=== PATIENT | female | born 1955 | race Caucasian/White ===

== ENCOUNTER 2021-01-18 20:01 | Inpatient (IN) ==
[2021-01-18] MEDS: NORMAL SALINE 1,000 ML IV SCH ×2 (20:21→21:51)
--- NOTE | 2021-01-18 20:30 | ERNOTE ---
Dyspnea - Date Date of Service: 01/18/21 - General Presenting Symptoms: shortness of breath Time Seen by Provider: 01/18/21 20:02 Source: EMS - Immun/Allergies/Home Medications Immunizations: IMMUNIZATION HX Immunizations Up to Date Yes History of Influenza Vaccine Yes Hx Pneumococcal Vaccination Yes Allergies/Adverse Reactions: Allergies cephalexin Allergy (Unknown, Verified 12/29/20 10:42) clarithromycin Allergy (Unknown, Verified 12/29/20 10:42) esomeprazole Allergy (Unknown, Verified 12/29/20 10:42) levofloxacin [From Levaquin] Allergy (Unknown, Verified 12/29/20 10:42) meperidine Allergy (Unknown, Verified 12/29/20 10:42) morphine Allergy (Unknown, Verified 12/29/20 10:42) omeprazole Allergy (Unknown, Verified 12/29/20 10:42) Penicillins Allergy (Unknown, Verified 12/29/20 10:42) Sulfa (Sulfonamide Antibiotics) Allergy (Unknown, Verified 12/29/20 10:42) sulfamethoxazole [From Bactrim] Allergy (Unknown, Verified 12/29/20 10:42) trimethoprim [From Bactrim] Allergy (Unknown, Verified 12/29/20 10:42) Home Medications: HOME MEDICATIONS Acyclovir [Zovirax] 800 mg PEG BID 10/11/20 [Last Taken Unknown] Albuterol Sulfate [Albuterol Sulfate 2.5 MG/0.5ML] 1 vial IH BID PRN 10/11/20 [Last Taken Unknown] Apixaban [Eliquis] 5 mg PEG BID 10/11/20 [Last Taken Unknown] Ascorbate Calcium [Vitamin C] 500 mg PEG DAILY 10/11/20 [Last Taken Unknown] Aspirin [Aspirin Chewable] 81 mg PEG DAILY 10/11/20 [Last Taken Unknown] Atorvastatin Calcium 80 mg PEG HS 10/11/20 [Last Taken Unknown] Banana Flakes/Tos [Banatrol Plus] 1 ea PEG TID 10/11/20 [Last Taken Unknown] Cholecalciferol (Vitamin D3) [Vitamin D3] 3 tab PEG DAILY 10/11/20 [Last Taken Unknown] Doxazosin Mesylate [Cardura] 1 mg PEG DAILY 10/11/20 [Last Taken Unknown] Furosemide [Lasix] 40 mg PEG BID 10/11/20 [Last Taken Unknown] Gabapentin 300 mg PEG DAILY 10/11/20 [Last Taken Unknown] Insulin Glargine,Hum.rec.anlog [Lantus] 30 unit SQ HS 10/11/20 [Last Taken Unknown] Lactose-Reduced Food/Fiber [Jevity 1.5 Rickey Liquid] 55 ml PEG .CONTINOUS 10/11/20 [Last Taken Unknown] Lansoprazole [Prevacid] 30 mg PEG DAILY 10/11/20 [Last Taken Unknown] Levothyroxine Sodium [Levoxyl] 150 mcg PEG DAILY 10/11/20 [Last Taken Unknown] Modafinil 200 mg PEG DAILY 10/11/20 [Last Taken Unknown] Potassium Chloride 2 packet PEG DAILY 10/11/20 [Last Taken Unknown] Venlafaxine HCl 75 mg PEG BID 10/11/20 [Last Taken Unknown] Azithromycin 500 mg PEG DAILY 01/18/21 [Last Taken Unknown] Banana Flakes/Tos [Banatrol Plus] 1 ea PEG TID 01/18/21 [Last Taken Unknown] Chlorhexidine Gluconate [Peridex 0.12%] 15 ml .ROUTE BID 01/18/21 [Last Taken Unknown] Insulin Lispro [Humalog] 100 unit SQ DAILY 01/18/21 [Last Taken Unknown] Insulin NPH Human Recom [Novolin N] 1 units SC DAILY 01/18/21 [Last Taken Unknown] Linezolid 600 mg PEG BID 01/18/21 [Last Taken Unknown] - History of Present Illness Narrative: 66-year-old female who is vent dependent, presents by ambulance with difficulty breathing and increased sputum production. No fever. No chest pain. No abdominal pain. "Does not feel well". Generalized weakness is a complaint. No vomiting or diarrhea. No headache. Review of Systems - Review of Systems Constitutional: Present: weakness, malaise. Absent: fever, chills Respiratory: Present: shortness of breath, cough, wheezing Cardiology: Absent: chest pain, palpitations Gastrointestinal/Abdominal: Absent: vomiting, diarrhea Medical History (Last Reviewed 01/18/21 @ 20:51 by Vilma Kovacs DO) Dependence on supplemental oxygen (Acute) Personal history of transient ischemic attack (TIA), and cerebral infarction without residual deficits (Acute) Body mass index [BMI] 50.0-59.9, adult (Acute) Encounter for attention to gastrostomy (Acute) Encounter for attention to tracheostomy (Acute) Solitary pulmonary nodule (Acute) Chronic obstructive pulmonary disease, unspecified (Acute) Unspecified diastolic (congestive) heart failure (Acute) Paroxysmal atrial fibrillation (Acute) Essential (primary) hypertension (Acute) Metabolic encephalopathy (Acute) Obstructive sleep apnea (Acute) Major depressive disorder, single episode, mild (Acute) Hypothyroidism, unspecified (Acute) Sarcoidosis of skin (Acute) Other folate deficiency anemias (Acute) Other vitamin B12 deficiency anemias (Acute) Herpesviral encephalitis (Acute) Dependence on respirator [ventilator] status (Acute) Acute and chronic respiratory failure with hypoxia (Acute) Surgical History: Surgical History (Last Reviewed 01/18/21 @ 20:51 by Vilma Kovacs DO) Surgical history unknown Family History: Family History (Last Reviewed 01/18/21 @ 20:51 by Vilma Kovacs DO) Family history unknown Social History: (Last Reviewed 01/18/21 @ 20:51 by Vilma Kovacs DO) Social History: fdc: Yes fdc comment: [facility] Marital status: number of children: 2 current occupational status: retired Tobacco: Smoking Status: Unknown if ever smoked Substance Use: substance use type: unknown Physical Exam - Physical Exam General Appearance: Present: alert Neck: Present: other - Tracheostomy in place Respiratory: Present: rhonchi - Scattered rhonchi, worse on the left Cardiovascular/Chest: Present: regular rate, rhythm Gastrointestinal/Abdominal: Present: nondistended, soft Neurological Exam: Present: alert Progress - Results and Orders Patient's Lab Results:: I have reviewed the patient's lab results. - Vital Signs Patient's Vital Signs:: I have reviewed the patient's vital signs. Vital Signs: Vital Signs 01/18/21 20:04 Temperature 37.2 C Pulse Rate 69 Respiratory Rate 16 Blood Pressure 112/39 O2 Sat by Pulse Oximetry 100 - EKG EKG #1 EKG: NSR EKG read: Interp. by me EKG Comments: I reviewed the EKG performed 2107 that showed a sinus rhythm with Q waves in the anterior leads, unchanged compared to previous EKG from 10/10/2020 - X-Ray X-Ray #1 X-Ray: chest Interpretation: Interp. by me X-ray Comments: 1 view chest x-ray showed an infiltrate at the left base - Progress/Reassessment Chief Complaint: Dyspnea Progress:: Re-examined Progress Note-Subjective: 01/18/21 22:05 After reviewing all of her results, I spoke with the hospitalist, Dr. Root. We discussed her long list of allergies that include cephalexin, Biaxin, Levaquin, penicillin and sulfa. When she arrived after blood cultures were drawn, I did give her 500 mg of Zithromax IV piggyback because she has tolerated this well in the past. Dr. Root and I discovered better coverage considering her pneumonia and UTI from her chronic indwelling Aguilera catheter, Dr. Root asked that I order cefepime. I did order 1000 mg of cefepime IV piggyback. I did bridging orders to admit the patient to Dr. Root service. Departure Clinical Impression: Pneumonia Qualifiers: Pneumonia type: due to unspecified organism Laterality: left Lung location: lower lobe of lung Qualified Code(s): J18.9 - Pneumonia, unspecified organism Chronic obstructive pulmonary disease, unspecified Qualifiers: COPD type: COPD with acute exacerbation Qualified Code(s): J44.1 - Chronic obstructive pulmonary disease with (acute) exacerbation - Departure Disposition: Still a patient Condition: Fair Referrals: Camryn Chavira DO [Primary Care Provider] -
[2021-01-18 21:01] LABS: Hematocrit 34.8 % (37.0-47.0); Hemoglobin 10.8 gm/dL (12.5-16.0); Mean Cell Volume 85.9 fl (78-100); Mean Corpuscular Hemoglobin 26.7 pg (27-31); Mean Platelet Volume 10.2 fl (8-12.5); Neutrophil # 6.1 K/mm3 (1.3-6.0); Platelet Count 282 K/mm3 (150-450); Red Blood Count 4.05 M/mm3 (4.2-5.4); White Blood Count 8.7 K/mm3 (4.0-10.5)
[2021-01-18] MEDS ORDERED: AZITHROMYCIN 500 MG in NORMAL SALINE 250 ML IV ONE (21:15)
[2021-01-18 21:17] LABS: Urine Bilirubin Negative (NEGATIVE); Urine Blood Negative /ul (NEGATIVE); Urine Ketone Negative (NEGATIVE); Urine Protein Negative (NEGATIVE); Urine Urobilinogen Normal (NORMAL); Urine pH 7.5 pH (5.0-7.0)
[2021-01-18 21:22] LABS: Albumin * 2.6 gm/dl (3.4-5.0); Anion Gap 9.9 mmol/L (6.8-13.8); BUN/Creatinine Ratio 19.4 (9.0-21.6); Bilirubin, Total 0.5 mg/dL (0.0-1.1); Ca. Corrected For Albumin 9.2 mg/dL (8.4-10.2); Calcium * 8.4 mg/dL (7.9-10.9); Carbon Dioxide 31.7 mmol/L (24-32.6); Potassium 3.6 mmol/L (3.4-4.6); Total Protein 7.5 gm/dL (6.2-8.2); Troponin I 0.03 ng/mL (0.00-0.10)
[2021-01-18 21:36] LABS: Urine Appearance Slightly Cloudy (CLEAR); Urine Bacteria 4+; Urine Color Yellow; Urine Nitrite Positive (NEGATIVE); Urine RBC TRACE /hpf (0-5); Urine WBC 25-50 /hpf (0-5)
[2021-01-18] MEDS ORDERED: CEFEPIME HCL 1 GM/100 ML BAG IV ONE (21:52)
[2021-01-18] MEDS ORDERED: MORPHINE SULFATE 4 MG/ML SYRG IV ONE (22:31)
[2021-01-18] MEDS ORDERED: ONDANSETRON HCL/PF 2 MG/ML VIAL IV ONE (22:32)
[2021-01-19] MEDS: CEFEPIME HCL 2 GM in DEXTROSE 5 % IN WATER 100 ML IV SCH ×6 (04:26→22:04)
[2021-01-19] MEDS: NORMAL SALINE 1,000 ML IV SCH ×2 (04:53→04:54)
[2021-01-19] MEDS ORDERED: VANCOMYCIN HCL 2 GM in DEXTROSE 5 % IN WATER 500 ML IV ONE ×2 (05:19)
--- NOTE | 2021-01-19 06:25 | HP ---
Chief Complaint - Chief Complaint Date of Service: 01/19/21 Time of Service: 07:00 Chief Complaint: hypoxia History of Present Illness: The patient is 66-year-old female, [facility] resident, with a history of diabetes, trach dependent with indwelling Aguilera catheter and PEG tube placement, who has not been feeling well for a few days. Her oxygen had to be increased to 5 L. Workup the usp was consistent of chest x-ray which showed left lower lobe pneumonia. She was brought to the hospital for further evaluation. Her vital signs remained stable. Lactic acid was 1.2. She was also noted to have a urinary tract infection, but was a Aguilera specimen. The Aguilera catheter was changed on 01/17/21. She was given azithromycin via PEG to and she was also given a dose of morphine for what is presumed to be back pain. She is being admitted for further evaluation. Medical History (Last Reviewed 01/19/21 @ 00:45 by Heather Younger RN) Dependence on supplemental oxygen (Acute) Personal history of transient ischemic attack (TIA), and cerebral infarction without residual deficits (Acute) Body mass index [BMI] 50.0-59.9, adult (Acute) Encounter for attention to gastrostomy (Acute) Encounter for attention to tracheostomy (Acute) Solitary pulmonary nodule (Acute) Chronic obstructive pulmonary disease, unspecified (Acute) Unspecified diastolic (congestive) heart failure (Acute) Paroxysmal atrial fibrillation (Acute) Essential (primary) hypertension (Acute) Metabolic encephalopathy (Acute) Obstructive sleep apnea (Acute) Major depressive disorder, single episode, mild (Acute) Hypothyroidism, unspecified (Acute) Sarcoidosis of skin (Acute) Other folate deficiency anemias (Acute) Other vitamin B12 deficiency anemias (Acute) Herpesviral encephalitis (Acute) Dependence on respirator [ventilator] status (Acute) Acute and chronic respiratory failure with hypoxia (Acute) Surgical History: Surgical History (Last Reviewed 01/19/21 @ 00:45 by Heather Younger RN) Surgical history unknown Family History: Family History (Last Reviewed 01/19/21 @ 00:45 by Heather Younger RN) Family history unknown Social History: (Last Reviewed 01/19/21 @ 00:45 by Heather Younger RN) Social History: usp: Yes usp comment: [facility] Marital status: number of children: 2 current occupational status: retired Tobacco: Smoking Status: Unknown if ever smoked Substance Use: substance use type: unknown Review Of Systems (GEN) - Review of Systems Generalized/Overall Review: Present: No Symptoms Reported - The patient denies any fevers, chills, visual changes, nausea, vomiting, abdominal pain, diarrhea, or chest pain. she is trach dependent and does not have a speaking valve in. She was nodding yes and no to questions. Immunizations: IMMUNIZATION HX Immunizations Up to Date Yes History of Influenza Vaccine Yes Hx Pneumococcal Vaccination Yes Allergies/Adverse Reactions: Allergies Allergy/AdvReac Type Severity Reaction Status Date / Time cephalexin Allergy Unknown Verified 12/29/20 10:42 clarithromycin Allergy Unknown Verified 12/29/20 10:42 esomeprazole Allergy Unknown Verified 12/29/20 10:42 levofloxacin [From Levaquin] Allergy Unknown Verified 12/29/20 10:42 meperidine Allergy Unknown Verified 12/29/20 10:42 morphine Allergy Unknown Verified 12/29/20 10:42 omeprazole Allergy Unknown Verified 12/29/20 10:42 Penicillins Allergy Unknown Verified 12/29/20 10:42 Sulfa (Sulfonamide Allergy Unknown Verified 12/29/20 10:42 Antibiotics) sulfamethoxazole Allergy Unknown Verified 12/29/20 10:42 [From Bactrim] trimethoprim [From Bactrim] Allergy Unknown Verified 12/29/20 10:42 Home Medications: HOME MEDICATIONS Acyclovir [Zovirax] 800 mg PEG BID 10/11/20 [Last Taken Unknown] Albuterol Sulfate [Albuterol Sulfate 2.5 MG/0.5ML] 1 vial IH BID PRN 10/11/20 [Last Taken Unknown] Apixaban [Eliquis] 5 mg PEG BID 10/11/20 [Last Taken Unknown] Ascorbate Calcium [Vitamin C] 500 mg PEG DAILY 10/11/20 [Last Taken Unknown] Aspirin [Aspirin Chewable] 81 mg PEG DAILY 10/11/20 [Last Taken Unknown] Atorvastatin Calcium 80 mg PEG HS 10/11/20 [Last Taken Unknown] Banana Flakes/Tos [Banatrol Plus] 1 ea PEG TID 10/11/20 [Last Taken Unknown] Cholecalciferol (Vitamin D3) [Vitamin D3] 3 tab PEG DAILY 10/11/20 [Last Taken Unknown] Doxazosin Mesylate [Cardura] 1 mg PEG DAILY 10/11/20 [Last Taken Unknown] Furosemide [Lasix] 40 mg PEG BID 10/11/20 [Last Taken Unknown] Gabapentin 300 mg PEG HS 10/11/20 [Last Taken Unknown] Insulin Glargine,Hum.rec.anlog [Lantus] 30 unit SQ HS 10/11/20 [Last Taken Unknown] Lactose-Reduced Food/Fiber [Jevity 1.5 Rickey Liquid] 55 ml PEG .CONTINOUS 10/11/20 [Last Taken Unknown] Lansoprazole [Prevacid] 30 mg PEG DAILY 10/11/20 [Last Taken Unknown] Levothyroxine Sodium [Levoxyl] 150 mcg PEG DAILY 10/11/20 [Last Taken Unknown] Modafinil 200 mg PEG DAILY 10/11/20 [Last Taken Unknown] Potassium Chloride 22.5 ml PEG DAILY 10/11/20 [Last Taken Unknown] Venlafaxine HCl 75 mg PEG BID 10/11/20 [Last Taken Unknown] Acetylcysteine [Mucomyst 20%] 4 ml IH BID 01/18/21 [Last Taken Unknown] Azithromycin 500 mg PEG DAILY 01/18/21 [Last Taken Unknown] Banana Flakes/Tos [Banatrol Plus] 1 ea PEG TID 01/18/21 [Last Taken Unknown] Chlorhexidine Gluconate [Peridex 0.12%] 15 ml .ROUTE BID 01/18/21 [Last Taken Unknown] Ciprofloxacn Bessie 0.3% OP 01/18/21 [Last Taken Unknown] Insulin Lispro [Humalog] 100 unit SQ Q6H 01/18/21 [Last Taken Unknown] Insulin NPH Human Recom [Novolin N] 1 units SC DAILY 01/18/21 [Last Taken Unknown] Linezolid 600 mg PEG BID 01/18/21 [Last Taken Unknown] Acetaminophen 350 mg PEG Q6H PRN 01/19/21 [Last Taken Unknown] Bisacodyl 10 mg RC DAILY PRN 01/19/21 [Last Taken Unknown] Dimethicon/Petrolat/A,C,E/Aloe [Gold Mckenzie Ult Diabetic Cream] TP TID 01/19/21 [Last Taken Unknown] Furosemide 20 mg PEG BID 01/19/21 [Last Taken Unknown] Loperamide HCl [Anti-Diarrheal] 2 mg PEG Q6H PRN 01/19/21 [Last Taken Unknown] Nystatin 1 ea MC TID 01/19/21 [Last Taken Unknown] Nystatin 1,000,000 unit MC BID 01/19/21 [Last Taken Unknown] Nystatin 100,000 unit PO TID 01/19/21 [Last Taken Unknown] Ondansetron HCl [Zofran] 4 mg PEG Q6H PRN 01/19/21 [Last Taken Unknown] Polyethylene Glycol 3350 [Miralax] 17 gm PEG DAILY PRN 01/19/21 [Last Taken Unknown] Prednisolone Acetate/Pf [Prednisolone Acet 1% Eye Drop] 1 drp OP QID 01/19/21 [Last Taken Unknown] Sennosides [Senna] 8.6 mg PEG Q12H PRN 01/19/21 [Last Taken Unknown] Exam - Exam Vital Signs: Vital Signs - Last Taken Temp 36.9 C 01/19/21 02:20 Pulse 61 01/19/21 02:20 Resp 18 01/19/21 02:20 BP 132/65 01/19/21 02:20 Pulse Ox 98 01/19/21 02:20 Comprehensive Narrative: 01/19/21 06:17 General : Alert and oriented 3, trach in place, no erythema or secretions around it HEENT : Extraocular movements intact, pupils equal, and round Neck: supple no JVD Chest: rhonchi on left side. Heart : Regular rate and rhythm. S1 and S2 heard. Abdomen : Soft, nontender, nondistended. Bowel sounds present, PEG tube in place, mild erythema, Aguilera bag secured to left leg. Extremities : No clubbing, cyanosis, or edema Musculoskeletal : bilateral foot drop.bilateral hand contractures. Neurological : Moving all 4 extremities. Speech fluent Skin : No obvious rashes, warm, dry, excoriation under breasts, lower abdomen. Psychiatric : Cooperative, appropriate mood and affect Diagnostic Studies: Abnormal Lab Results 01/18/21 01/18/21 01/18/21 Range/Units 20:28 21:00 21:00 RBC 4.05 L (4.2-5.4) M/mm3 Hgb 10.8 L (12.5-16.0) gm/dL Hct 34.8 L (37.0-47.0) % MCH 26.7 L (27-31) pg MCHC 31.0 L (32-36) g/dl RDW 18.0 H (11.5-14.0) % Lymphocytes % 17.4 L (20-51) % Eosinophils % 5.1 H (0.0-3.0) % Neutrophils # 6.1 H (1.3-6.0) K/mm3 Albumin 2.6 L (3.4-5.0) gm/dl Urine Nitrate Positive H (NEGATIVE) Ur Leukocyte Esterase 500 H (NEGATIVE) /ul Urine WBC 25-50 H (0-5) /hpf Urine Bacteria 4+ H (NONE) Laboratory Results WBC 8.7 K/mm3 (4.0-10.5) 01/18/21 21:00 RBC 4.05 M/mm3 (4.2-5.4) L 01/18/21 21:00 Hgb 10.8 gm/dL (12.5-16.0) L 01/18/21 21:00 Hct 34.8 % (37.0-47.0) L 01/18/21 21:00 MCV 85.9 fl (78-100) 01/18/21 21:00 MCH 26.7 pg (27-31) L 01/18/21 21:00 MCHC 31.0 g/dl (32-36) L 01/18/21 21:00 RDW 18.0 % (11.5-14.0) H 01/18/21 21:00 Plt Count 282 K/mm3 (150-450) 01/18/21 21:00 MPV 10.2 fl (8-12.5) 01/18/21 21:00 Immature Gran % (Auto) 0.30 % (0.001-0.429) 01/18/21 21:00 Immature Gran # (Auto) 0.03 K/mm3 (0.000-0.0310) 01/18/21 21:00 Neutrophils % 70.0 % (42-75.0) 01/18/21 21:00 Lymphocytes % 17.4 % (20-51) L 01/18/21 21:00 Monocytes % 6.5 % (0.0-9) 01/18/21 21:00 Eosinophils % 5.1 % (0.0-3.0) H 01/18/21 21:00 Basophils % 0.7 % (0.0-1.0) 01/18/21 21:00 Nucleated RBC % 0.0 k/mm3 (0-1) 01/18/21 21:00 Neutrophils # 6.1 K/mm3 (1.3-6.0) H 01/18/21 21:00 Lymphocytes # 1.51 k/mm3 (1.5-3.5) 01/18/21 21:00 Monocytes # 0.6 k/mm3 (0.0-1.0) 01/18/21 21:00 Eosinophils # 0.4 k/mm3 (0.0-0.7) 01/18/21 21:00 Absolute Basophils 0.1 k/mm3 (0.0-0.1) 01/18/21 21:00 Sodium 141 mmol/L (132-142) 01/18/21 21:00 Plasma Sodium 141 mmol/L (130-142) 01/18/21 21:00 Potassium 3.6 mmol/L (3.4-4.6) 01/18/21 21:00 Chloride 103 mmol/L (97-106) 01/18/21 21:00 Carbon Dioxide 31.7 mmol/L (24-32.6) 01/18/21 21:00 Anion Gap 9.9 mmol/L (6.8-13.8) 01/18/21 21:00 BUN 12 mg/dL (3-23) 01/18/21 21:00 Creatinine 0.62 mg/dL (0.4-1.4) 01/18/21 21:00 Est GFR (Non-Af Amer) 103 mL/min (60-130) 01/18/21 21:00 BUN/Creatinine Ratio 19.4 (9.0-21.6) 01/18/21 21:00 Random Glucose 97 mg/dL (70-110) D 01/18/21 21:00 Lactic Acid, Venous 1.2 mmol/L (0.4-2.0) 01/18/21 21:00 Calcium 8.4 mg/dL (7.9-10.9) 01/18/21 21:00 Calcium Adj for Albumin 9.2 mg/dL (8.4-10.2) 01/18/21 21:00 Total Bilirubin 0.5 mg/dL (0.0-1.1) 01/18/21 21:00 AST 22 U/L (0-48) 01/18/21 21:00 ALT 23 U/L (19-67) 01/18/21 21:00 Alkaline Phosphatase 78 U/L (50-170) 01/18/21 21:00 Troponin I 0.030 ng/mL (0.00-0.10) 01/18/21 21:00 Total Protein 7.5 gm/dL (6.2-8.2) 01/18/21 21:00 Albumin 2.6 gm/dl (3.4-5.0) L 01/18/21 21:00 Urine Color Yellow 01/18/21 20:28 Urine Appearance Slightly cloudy (CLEAR) 01/18/21 20: Urine pH 7.5 pH (5.0-7.0) 01/18/21 20: Ur Specific Barnard 1.010 SP.GR. (1.005-1.010) 01/18/21 20:28 Urine Protein Negative mg/dL (NEGATIVE) 01/18/21 20: Urine Glucose (UA) Negative mg/dL (NEGATIVE) 01/18/21 20: Urine Ketones Negative mg/dL (NEGATIVE) 01/18/21 20:28 Urine Blood Negative /ul (NEGATIVE) 01/18/21 20:28 Urine Nitrate Positive (NEGATIVE) H 01/18/21 20: Urine Bilirubin Negative mg/dl (NEGATIVE) 01/18/21 20: Urine Urobilinogen Normal EU/dl (NORMAL) 01/18/21 20:28 Ur Leukocyte Esterase 500 /ul (NEGATIVE) H 01/18/21 20:28 Urine RBC Trace /hpf (0-5) 01/18/21 20: Urine WBC 25-50 /hpf (0-5) H 01/18/21 20:28 Ur Epithelial Cells 0-5 /hpf (0-5) 01/18/21 20:28 Urine Bacteria 4+ (NONE) H 01/18/21 20:28 Urine Culture Comments Culture to follow 01/18/21 20: SARS-CoV-2 (PCR) Not detected (NotDetected) 01/18/21 20:25 Assessment/Plan - Narrative Narrative: The patient is a 66-year-old us[facility] patient, her trach dependent and PEG dependent, presenting with left lower lobe pneumonia. Left lower lobe pneumonia - Treat for usp acquired pneumonia - Treat with cefepime and vancomycin - Provide Mucinex - Obtain sputum culture - De-escalate antibiotics pending culture results UTI, present on admission - Aguilera catheter changed on 01/17/21 - Above antibiotic should be adequate coverage Atrial fibrillation - Continue Eliquis for cardioembolic prophylaxis - Continue medications for rate control Nutrition - Continue Jevity via PEG tube End-stage respiratory failure - Trach dependent - Appears to be comfortable with current settings - Provide trach care DVT prophylaxis -Eliquis Medication review - Medication reconciliation form completed Goals of care - Full code Communications - Discussed with the emergency room physician - Discussed with the bedside nurse - Patient updated of plan of care, all questions answered to their satisfaction. Disposition - Fdc when medically stable Telemedicine clause: - As the provider of this telehealth consult, requested by the patient's evaluating physician, I attest that I introduced myself to the patient, provided my credentials and determined that telemedicine via a real-time, 2 way interactive audio and video platform is an appropriate and effective means of providing this service. - I reviewed the patient's chart and had a discussion with the member of the patient's treatment team. - The patient and I mutually agreed with continuation of this evaluation via telemedicine. - This virtual encounter was taken place from [place], [place]. The encounter was approximately 35 minutes. The nurse was present during the entire time of the encounter and was able to move the stethoscope in appropriate directions. The patient was evaluated at [facility].
[2021-01-19] MEDS ORDERED: ACETAMINOPHEN 325 MG TABLET PEG PRN (06:27)
[2021-01-19] MEDS ORDERED: ONDANSETRON HCL 4 MG TABLET PEG PRN (06:27)
[2021-01-19] MEDS ORDERED: SENNOSIDES 8.6 MG TABLET PEG PRN (06:27)
[2021-01-19] MEDS ORDERED: LOPERAMIDE HCL 2 MG CAPSULE PEG PRN (06:27)
[2021-01-19] MEDS ORDERED: BISACODYL 10 MG SUPP.RECT RC PRN (06:27)
[2021-01-19] MEDS ORDERED: INSULIN LISPRO 100 UNIT/ML SQ SCH (06:30)
[2021-01-19] MEDS ORDERED: LACTOSE REDUCED FOOD PEG SCH (06:30)
[2021-01-19] MEDS ORDERED: [UNRECOGNIZED DRUG - OTHER] PEG SCH (06:30)
[2021-01-19 07:33] LABS: Hematocrit 41.9 % (37.0-47.0); Hemoglobin 12.5 gm/dL (12.5-16.0); Mean Cell Volume 87.8 fl (78-100); Mean Corpuscular Hemoglobin 26.2 pg (27-31); Mean Corpuscular Hgb Conc 29.8 g/dl (32-36); Mean Platelet Volume 10.3 fl (8-12.5); Neutrophil # 4.9 K/mm3 (1.3-6.0); Neutrophil % 63.3 % (42-75.0); Platelet Count 380 K/mm3 (150-450); Red Blood Count 4.77 M/mm3 (4.2-5.4); Red Cell Distribution Width 18.6 % (11.5-14.0); White Blood Count 7.7 K/mm3 (4.0-10.5)
[2021-01-19 07:39] LABS: Albumin * 2.4 gm/dl (3.4-5.0); Anion Gap 4.8 mmol/L (6.8-13.8); BUN/Creatinine Ratio 18.8 (9.0-21.6); Bilirubin, Total 0.6 mg/dL (0.0-1.1); Ca. Corrected For Albumin 9.3 mg/dL (8.4-10.2); Calcium * 8.3 mg/dL (7.9-10.9); Carbon Dioxide 34.9 mmol/L (24-32.6); Magnesium 1.9 mg/dL (1.2-2.8); Potassium 3.7 mmol/L (3.4-4.6); Total Protein 7.1 gm/dL (6.2-8.2)
[2021-01-19] MEDS: ALBUTEROL SULFATE 2.5 MG/3 ML VIAL.NEB IH SCH ×6 (07:42→22:22)
[2021-01-19] MEDS: INSULIN LISPRO 100 UNITS/ML VIAL SC SCH ×3 (08:01→18:24)
--- NOTE | 2021-01-19 08:31 | PN ---
Subjective - Date and Time Seen Date: 01/19/21 Time: 08:25 Subjective Narrative: desaturated earlier after trach cares. slowly recovering . ABG not able to be drawn due to contractures. Objective - Review of Systems Generalized/Overall Review: Reports: Weakness. Denies: Chills, Fever EENTM: Denies: Blurred Vision Respiratory: Denies: Cough, Shortness of Breath Cardiac: Denies: Chest Pain, Edema, Palpitations Abdominal: Denies: Nausea, Vomiting, Abdominal Pain Genitourinary Symptoms: Denies: Urgency, Frequency Musculoskeletal Complaints: Denies: Joint Pain Neurological: Denies: Headache Skin: Reports: Lesions. Denies: Rash Misc: All systems neg except as marked - ROS us all no by lips - Vitals Vitals: Last Vital Signs Temp 36.9 C 01/19/21 02:20 Pulse 83 01/19/21 07:52 Resp 22 H 01/19/21 07:52 BP 132/65 01/19/21 02:20 Pulse Ox 90 L 01/19/21 07:42 - Abnormal Lab Findings Abnormal Lab Findings: Abnormal Lab Results 01/18/21 01/18/21 01/18/21 Range/Units 20:28 21:00 21:00 RBC 4.05 L (4.2-5.4) M/mm3 Hgb 10.8 L (12.5-16.0) gm/dL Hct 34.8 L (37.0-47.0) % MCH 26.7 L (27-31) pg MCHC 31.0 L (32-36) g/dl RDW 18.0 H (11.5-14.0) % Immature Gran % (Auto) (0.001-0.429) % Immature Gran # (Auto) (0.000-0.0310) K/mm3 Lymphocytes % 17.4 L (20-51) % Eosinophils % 5.1 H (0.0-3.0) % Neutrophils # 6.1 H (1.3-6.0) K/mm3 Carbon Dioxide (24-32.6) mmol/L Anion Gap (6.8-13.8) mmol/L Random Glucose (70-110) mg/dL Albumin 2.6 L (3.4-5.0) gm/dl Urine Nitrate Positive H (NEGATIVE) Ur Leukocyte Esterase 500 H (NEGATIVE) /ul Urine WBC 25-50 H (0-5) /hpf Urine Bacteria 4+ H (NONE) 01/19/21 01/19/21 Range/Units 07:21 07:21 RBC (4.2-5.4) M/mm3 Hgb (12.5-16.0) gm/dL Hct (37.0-47.0) % MCH 26.2 L (27-31) pg MCHC 29.8 L (32-36) g/dl RDW 18.6 H (11.5-14.0) % Immature Gran % (Auto) 0.90 H (0.001-0.429) % Immature Gran # (Auto) 0.07 H (0.000-0.0310) K/mm3 Lymphocytes % (20-51) % Eosinophils % (0.0-3.0) % Neutrophils # (1.3-6.0) K/mm3 Carbon Dioxide 34.9 H (24-32.6) mmol/L Anion Gap 4.8 L (6.8-13.8) mmol/L Random Glucose 188 H D (70-110) mg/dL Albumin 2.4 L (3.4-5.0) gm/dl Urine Nitrate (NEGATIVE) Ur Leukocyte Esterase (NEGATIVE) /ul Urine WBC (0-5) /hpf Urine Bacteria (NONE) - Exam Constitutional: Present: Alert - AAO x2 ENT Exam: Present: hearing grossly normal Neck: Present: limited range of motion - due to trach and vent tube. Absent: lymphadenopathy (R), lymphadenopathy (L) Respiratory: Present: decreased breath sounds, rhonchi, No rales, No wheezing Cardiovascular/Chest: Present: regular rate, rhythm, no JVD, no murmur Abdomen: Present: Normal bowel sounds, soft, nontender, obese Extremity: Present: no calf tenderness, pedal edema Assessment/Plan Plan Narrative: Cindy Diaz was admitted for weakness and increased production of sputum to needing recently upping her trilogy vent from usual 4 L to 7 L to keep her oxygen saturation up. Patient was admitted for suspected pneumonia in the left lower lobe. She was started on cefepime and vancomycin. She desaturated after trach cares and has been needing up to 10 L. ABG was not able to be drawn and the venous blood gas did show hypoxemia ( as can be expected by venous sampling) however no hypercarbia. A follow-up chest x-ray was done which showed small bilateral pleural effusions and bilateral opacities- superimposed infection cannot be ruled out. positive interstitial edema. Mucomyst treatment was started and RT is able to suction secretions now. We will send sample for sputum culture and sensitivity. We will give 1 dose of IV Lasix. ADDENDUM: patients BP went down to the 70's. The lasix was held and 250 ml Bolus was given. Since then she has been in the low 90's of SBP but her O2 saturations have been in the upper 90's with 4-5 L . She could have vagalled out with the suctioning of her secretions ( but should be a short period and should go back to baseline) or she could be just dehydrated and be hypovolemic. I have not started her on IVF as her CXR was showing possibleinterstitial edema. I do not think sepsis or cardiogenic at this time as her lower extremity are neither warm or cold. Since her BP improved with IV bolus she could be just behind fluids and will start her NSS at 100 ml/hour on top of her PEG feeding. If she gets congested we will give her lasix. Her Trilogy vent has been up with her oxygenation. - Problems/Diagnosis (1) Pneumonia Problem: Acute Qualifiers: Pneumonia type: due to unspecified organism Laterality: left Lung location: lower lobe of lung Qualified Code(s): J18.9 - Pneumonia, unspecified organism (2) UTI (urinary tract infection) Problem: Acute (3) Chronic respiratory failure Problem: Acute Narrative: vent dependent (4) Chronic obstructive pulmonary disease, unspecified Problem: Chronic Qualifiers: COPD type: COPD with acute exacerbation Qualified Code(s): J44.1 - Chronic obstructive pulmonary disease with (acute) exacerbation (5) Hypothyroidism, unspecified Problem: Chronic (6) Obstructive sleep apnea Problem: Chronic (7) Sarcoidosis of skin Problem: Chronic (8) On enteral nutrition Problem: Chronic Narrative: PEG tube feeding
[2021-01-19 08:49] LABS: Venous Blood Gas HCO3 23.1 mmol/L (22.0-29.0); Venous Blood Gas pH 7.44 (7.32-7.43)
[2021-01-19] MEDS: ACETYLCYSTEINE 200 MG/ML VIAL IH SCH ×2 (08:56→17:06)
[2021-01-19] MEDS: ALBUTEROL SULFATE 2.5 MG/3 ML VIAL.NEB IH PRN (08:59)
[2021-01-19] MEDS ORDERED: FUROSEMIDE 20 MG TABLET PEG SCH (09:00)
[2021-01-19] MEDS ORDERED: FUROSEMIDE 40 MG TABLET PEG SCH (09:00)
[2021-01-19] MEDS ORDERED: LANSOPRAZOLE 30 MG PEG SCH (09:00)
[2021-01-19] MEDS: LEVOTHYROXINE SODIUM 150 MCG TABLET PEG SCH (09:38)
[2021-01-19] MEDS ORDERED: FUROSEMIDE 10 MG/ML VIAL IV ONE (09:39)
[2021-01-19] MEDS: CHOLECALCIFEROL 1,000 UNIT CAPSULE PEG SCH (09:39)
[2021-01-19] MEDS: ASCORBIC ACID 500 MG TABLET PEG SCH (09:39)
[2021-01-19] MEDS: APIXABAN 5 MG TABLET GT SCH ×2 (09:40→21:52)
[2021-01-19] MEDS: ASPIRIN 81 MG TAB.CHEW PEG SCH (09:40)
[2021-01-19] MEDS: prednisoLONE ACETATE 50 DROP BTL OP SCH ×4 (09:41→21:51)
[2021-01-19] MEDS: NYSTATIN 15 APPL BTL TP SCH ×4 (09:41→21:51)
[2021-01-19] MEDS: POTASSIUM CHLORIDE 20 MEQ/15 ML UDC PEG SCH (09:42)
[2021-01-19] MEDS: PANTOPRAZOLE SODIUM 40 MG in NORMAL SALINE 100 ML IV SCH (09:43)
[2021-01-19] MEDS: guaiFENesin 100 MG/5 ML SYRUP PEG SCH ×5 (09:43→23:13)
[2021-01-19] MEDS ORDERED: NORMAL SALINE 250 ML IV ONE (10:08)
[2021-01-19] MEDS: traMADol HCL 50 MG TABLET PEG PRN (10:31)
[2021-01-19] MEDS: DOXAZOSIN MESYLATE 2 MG TABLET PEG SCH (10:37)
[2021-01-19] MEDS: FUROSEMIDE 20 MG, FUROSEMIDE 40 MG PEG SCH ×4 (10:37→21:53)
[2021-01-19] MEDS: VANCOMYCIN/WATER FOR INJ (PEG) 1.75 GM/350 ML BAG IV SCH (18:16)
[2021-01-19] MEDS: NORMAL SALINE 1,000 ML IV PRN (18:20)
[2021-01-19] MEDS: CHLORHEXIDINE GLUCONATE MOUTHWASH PO SCH (21:50)
[2021-01-19] MEDS: GABAPENTIN 300 MG CAPSULE PEG SCH (21:51)
[2021-01-19] MEDS: ROSUVASTATIN CALCIUM 20 MG TABLET PO SCH (21:53)
[2021-01-19] MEDS: INSULIN GLARGINE,HUM.REC.ANLOG 100 UNITS/ML VIAL SC SCH (21:54)
[2021-01-19] MEDS ORDERED: ALBUTEROL SULFATE/IPRATROPIUM 3 ML NEBU IH ONE (22:15)
[2021-01-19] MEDS: ACETAMINOPHEN 325 MG TABLET PEG PRN (23:12)
[2021-01-20] MEDS: ALBUTEROL SULFATE 2.5 MG/3 ML VIAL.NEB IH SCH ×7 (03:40→22:48)
[2021-01-20] MEDS: VANCOMYCIN/WATER FOR INJ (PEG) 1.75 GM/350 ML BAG IV SCH (04:04)
[2021-01-20] MEDS: guaiFENesin 100 MG/5 ML SYRUP PEG SCH ×5 (04:04→20:38)
[2021-01-20] MEDS: NORMAL SALINE 1,000 ML IV PRN (04:05)
[2021-01-20] MEDS: ACETYLCYSTEINE 200 MG/ML VIAL IH SCH ×3 (06:11→18:20)
[2021-01-20] MEDS: INSULIN LISPRO 100 UNITS/ML VIAL SC SCH ×3 (06:46→16:37)
[2021-01-20] MEDS: traMADol HCL 50 MG TABLET PEG PRN (07:18)
[2021-01-20] MEDS: CEFEPIME HCL 2 GM in DEXTROSE 5 % IN WATER 100 ML IV SCH ×6 (07:44→21:04)
[2021-01-20] MEDS: LEVOTHYROXINE SODIUM 150 MCG TABLET PEG SCH (07:48)
--- NOTE | 2021-01-20 08:28 | PN ---
Subjective - Date and Time Seen Date: 01/20/21 Time: 08:26 Subjective Narrative: Patient opens eyes with name call. she says she feels better with lips forming yes word. . Tmax 38. Objective - Review of Systems Misc: All systems neg except as marked - did not do due to patient sleepy and cannot talk due to her trach. - Vitals Vitals: Last Vital Signs Temp 36.9 C 01/20/21 06:17 Pulse 67 01/20/21 06:19 Resp 22 H 01/20/21 06:19 BP 96/49 01/20/21 06:17 Pulse Ox 96 01/20/21 06:17 - Abnormal Lab Findings Abnormal Lab Findings: Abnormal Lab Results 01/19/21 Range/Units 08:45 pO2 49.6 H (23.3-35.1) mmHg ABG pH 7.44 H (7.32-7.43) VBG O2 Saturation 86.9 L (94.0-98.0) % - Exam Constitutional: Present: Alert, Oriented x3 ENT Exam: Present: hearing grossly normal Neck: Present: limited range of motion. Absent: lymphadenopathy (R), lymphadenopathy (L) Respiratory: Present: decreased breath sounds, rhonchi, No rales, No wheezing Cardiovascular/Chest: Present: regular rate, rhythm, no JVD, no murmur Abdomen: Present: Normal bowel sounds, soft, nontender, obese, other - PEG tube Extremity: Present: calf tenderness, pedal edema, other - plantar flexed Assessment/Plan Plan Narrative: Cindy was admitted yesterday for healthcare associated pneumonia and was started on cefepime and vancomycin. She did have desaturations yesterday after trach cares requiring up to 10 L into her trial trilogy vent. After Mucomyst and suctioning of secretions she settled back to her usual 4 L of oxygen to keep her saturations above 90%. She also had low blood pressures after suctioning of her secretions and we started her on IV fluids. Her blood pressure overnight ranged from 92-148/49-71. She is 3.2 L on the positive side. Her T-max is 38 C. Her sputum culture on 01/18/2021 showed Pseudomonas and providencia stuartii sensitive to cefepime and her deeper suctioned secretions on 01/19/2021 is growing gram-negative bacilli. Her urinalysis also is growing gram-negative bacilli. Since there is no evidence of anything that is gram-positive we will discontinue her vancomycin and continue with cefepime. Consider meropenem if with no improvement. Her blood cultures x2 shows no growth after 24 hours.. Will await final cultures. We will get a CBC and a BMP today and keep IV fluids to keep being open. ADDENDUM: WBC of 13.3, GFR 58. Vanco was d/c. Continue with current medications and present management. - Problems/Diagnosis (1) Pneumonia Problem: Acute Qualifiers: Pneumonia type: due to unspecified organism Laterality: left Lung location: lower lobe of lung Qualified Code(s): J18.9 - Pneumonia, unspecified organism (2) UTI (urinary tract infection) Problem: Acute (3) Chronic respiratory failure Problem: Acute (4) Chronic obstructive pulmonary disease, unspecified Problem: Chronic Qualifiers: COPD type: COPD with acute exacerbation Qualified Code(s): J44.1 - Chronic obstructive pulmonary disease with (acute) exacerbation (5) Hypothyroidism, unspecified Problem: Chronic (6) Obstructive sleep apnea Problem: Chronic (7) Sarcoidosis of skin Problem: Chronic (8) On enteral nutrition Problem: Chronic
[2021-01-20] MEDS: DOXAZOSIN MESYLATE 2 MG TABLET PEG SCH (08:50)
[2021-01-20] MEDS: CHOLECALCIFEROL 1,000 UNIT CAPSULE PEG SCH (08:50)
[2021-01-20] MEDS: ASPIRIN 81 MG TAB.CHEW PEG SCH (08:50)
[2021-01-20] MEDS: APIXABAN 5 MG TABLET GT SCH ×2 (08:51→20:41)
[2021-01-20] MEDS: PANTOPRAZOLE SODIUM 40 MG in NORMAL SALINE 100 ML IV SCH (08:58)
[2021-01-20] MEDS: POTASSIUM CHLORIDE 20 MEQ/15 ML UDC PEG SCH (08:59)
[2021-01-20] MEDS: ASCORBIC ACID 500 MG TABLET PEG SCH (08:59)
[2021-01-20] MEDS: NYSTATIN 15 APPL BTL TP SCH ×4 (09:00→20:41)
[2021-01-20] MEDS: FUROSEMIDE 20 MG, FUROSEMIDE 40 MG PEG SCH ×4 (09:04→20:40)
[2021-01-20] MEDS: CHLORHEXIDINE GLUCONATE MOUTHWASH PO SCH ×2 (09:05→20:41)
[2021-01-20] MEDS: prednisoLONE ACETATE 50 DROP BTL OP SCH ×4 (09:05→21:06)
[2021-01-20 09:33] LABS: Hematocrit 36.2 % (37.0-47.0); Hemoglobin 10.7 gm/dL (12.5-16.0); Mean Cell Volume 87.7 fl (78-100); Mean Corpuscular Hemoglobin 25.9 pg (27-31); Mean Corpuscular Hgb Conc 29.6 g/dl (32-36); Mean Platelet Volume 10.4 fl (8-12.5); Neutrophil # 11.6 K/mm3 (1.3-6.0); Neutrophil % 87.9 % (42-75.0); Platelet Count 300 K/mm3 (150-450); Red Blood Count 4.13 M/mm3 (4.2-5.4); Red Cell Distribution Width 18.5 % (11.5-14.0); White Blood Count 13.2 K/mm3 (4.0-10.5)
[2021-01-20 09:35] LABS: Anion Gap 12.8 mmol/L (6.8-13.8); BUN/Creatinine Ratio 24.8 (9.0-21.6); Carbon Dioxide 28.8 mmol/L (24-32.6); Estimated Creat Clear 49.1; Potassium 3.6 mmol/L (3.4-4.6)
[2021-01-20] MEDS: ROSUVASTATIN CALCIUM 20 MG TABLET PO SCH (20:39)
[2021-01-20] MEDS: GABAPENTIN 300 MG CAPSULE PEG SCH (20:41)
[2021-01-20] MEDS: INSULIN GLARGINE,HUM.REC.ANLOG 100 UNITS/ML VIAL SC SCH (20:42)
[2021-01-21] MEDS: guaiFENesin 100 MG/5 ML SYRUP PEG SCH ×6 (01:40→19:44)
[2021-01-21] MEDS: ALBUTEROL SULFATE 2.5 MG/3 ML VIAL.NEB IH SCH ×6 (02:08→23:29)
[2021-01-21] MEDS: CEFEPIME HCL 2 GM in DEXTROSE 5 % IN WATER 100 ML IV SCH ×2 (05:03)
[2021-01-21] MEDS: ACETYLCYSTEINE 200 MG/ML VIAL IH SCH ×2 (06:02→17:59)
--- NOTE | 2021-01-21 07:42 | PN ---
Subjective - Date and Time Seen Date: 01/21/21 Time: 07:41 Subjective Narrative: AAo x3. C/O pain--site? questionable back. afebrile. Objective - Review of Systems Generalized/Overall Review: Denies: Chills, Fever Respiratory: Denies: Cough, Shortness of Breath Cardiac: Denies: Chest Pain, Palpitations Abdominal: Reports: Nausea. Denies: Abdominal Pain Genitourinary Symptoms: Denies: Urgency Musculoskeletal Complaints: Reports: Back Pain - questionable Neurological: Denies: Headache Skin: Denies: Lesions, Rash Misc: All systems neg except as marked - Vitals Vitals: Last Vital Signs Temp 36.8 C 01/21/21 05:06 Pulse 67 01/21/21 06:12 Resp 23 H 01/21/21 06:12 BP 105/64 01/21/21 05:06 Pulse Ox 97 01/21/21 06:02 - Abnormal Lab Findings Abnormal Lab Findings: Abnormal Lab Results 01/20/21 01/20/21 Range/Units 09:20 09:20 WBC 13.2 H D (4.0-10.5) K/mm3 RBC 4.13 L (4.2-5.4) M/mm3 Hgb 10.7 L (12.5-16.0) gm/dL Hct 36.2 L (37.0-47.0) % MCH 25.9 L (27-31) pg MCHC 29.6 L (32-36) g/dl RDW 18.5 H (11.5-14.0) % Immature Gran % (Auto) 0.50 H (0.001-0.429) % Immature Gran # (Auto) 0.06 H (0.000-0.0310) K/mm3 Neutrophils % 87.9 H (42-75.0) % Lymphocytes % 4.6 L (20-51) % Eosinophils % 3.9 H (0.0-3.0) % Neutrophils # 11.6 H (1.3-6.0) K/mm3 Lymphocytes # 0.61 L (1.5-3.5) k/mm3 Plasma Sodium 143 H (130-142) mmol/L BUN 27 H D (3-23) mg/dL Est GFR (Non-Af Amer) 54 L D (60-130) mL/min BUN/Creatinine Ratio 24.8 H (9.0-21.6) Random Glucose 216 H (70-110) mg/dL - Exam Constitutional: Present: Alert, Oriented x3, Morbidly obese ENT Exam: Present: hearing grossly normal Neck: Present: limited range of motion. Absent: lymphadenopathy (R), lymphadenopathy (L) Respiratory: Present: decreased breath sounds, rhonchi. Absent: wheezing Cardiovascular/Chest: Present: regular rate, rhythm, no JVD, no murmur Abdomen: Present: Normal bowel sounds, soft, nontender, obese Extremity: Present: no calf tenderness, pedal edema Assessment/Plan Plan Narrative: Cindy is hospital day #3 for healthcare associated pneumonia /UTI and was started on cefepime and vancomycin. She had episodes of desaturations after trach cares and hypotension on the first day which has stabilized now after Mucomyst and suctioning of secretions and IV fluids. She had a temperature of 38 on her first day but has since been afebrile since that time. Her first sputum culture and sensitivity showed Pseudomonas and Providencia stuartii, her second sputum Gram stain from deeper suctioning after Mucomyst showed gram- negative bacilli, her urine culture was showing also gram-negative bacilli. Vancomycin was stopped and cefepime continued while awaiting other culture results. She has leukocytosis and her creatinine bumped up 0.6 to 1.2 yesterday. Her creatinine could be due to prerenal versus due to vancomycin induced. She is positive 2 L on her fluid balance. Her Vanco anyway has been stopped. Will d/c her TKVO and do saline lock. We will recheck a CBC and a BMP tomorrow. Her vital signs have been stable. We will sign out patient to physician [employer] professional. ADDENDUM : Whether this is HCAP vs Ventilator acquired Pneumonia -treatment will be the same. Her deeper 2nd sputum culture shows only Pseudomonas and no P. stuartii and her UCS shows P. Mirabilis- will change her Cefepime to meropenem for better coverage of all 3 organisms. It says she has allergy to PCN and Cephalexin but she has tolerated Cefepime w/o AE. - Problems/Diagnosis (1) Pneumonia Problem: Acute Qualifiers: Pneumonia type: due to Pseudomonas Laterality: left Lung location: lower lobe of lung Qualified Code(s): J15.1 - Pneumonia due to Pseudomonas Narrative: HACP vs VAP (2) UTI (urinary tract infection) Problem: Acute Narrative: due to Prteus Mirabilis (3) Chronic respiratory failure Problem: Chronic (4) Chronic obstructive pulmonary disease, unspecified Problem: Chronic Qualifiers: COPD type: COPD with acute exacerbation Qualified Code(s): J44.1 - Chronic obstructive pulmonary disease with (acute) exacerbation (5) Hypothyroidism, unspecified Problem: Chronic (6) Obstructive sleep apnea Problem: Chronic (7) Sarcoidosis of skin Problem: Chronic (8) On enteral nutrition Problem: Chronic
[2021-01-21] MEDS: INSULIN LISPRO 100 UNITS/ML VIAL SC SCH ×3 (07:51→17:25)
[2021-01-21] MEDS: NORMAL SALINE 1,000 ML IV PRN (07:53)
[2021-01-21] MEDS: LEVOTHYROXINE SODIUM 150 MCG TABLET PEG SCH (07:57)
[2021-01-21] MEDS: traMADol HCL 50 MG TABLET PEG PRN ×2 (07:58→23:26)
[2021-01-21] MEDS: prednisoLONE ACETATE 50 DROP BTL OP SCH ×4 (10:44→21:02)
[2021-01-21] MEDS: CHOLECALCIFEROL 1,000 UNIT CAPSULE PEG SCH (10:45)
[2021-01-21] MEDS: DOXAZOSIN MESYLATE 2 MG TABLET PEG SCH (10:45)
[2021-01-21] MEDS: POTASSIUM CHLORIDE 20 MEQ/15 ML UDC PEG SCH (10:47)
[2021-01-21] MEDS: ASCORBIC ACID 500 MG TABLET PEG SCH (10:47)
[2021-01-21] MEDS: ASPIRIN 81 MG TAB.CHEW PEG SCH (10:47)
[2021-01-21] MEDS: APIXABAN 5 MG TABLET GT SCH ×2 (10:47→21:01)
[2021-01-21] MEDS: VENLAFAXINE HCL 75 MG TABLET PEG SCH ×2 (10:48→21:01)
[2021-01-21] MEDS: FUROSEMIDE 20 MG, FUROSEMIDE 40 MG PEG SCH ×4 (10:48→21:01)
[2021-01-21] MEDS: NYSTATIN 15 APPL BTL TP SCH ×4 (10:49→21:01)
[2021-01-21] MEDS: PANTOPRAZOLE SODIUM 40 MG in NORMAL SALINE 100 ML IV SCH (10:50)
[2021-01-21] MEDS: MEROPENEM 1 GM in NORMAL SALINE 100 ML IV SCH ×2 (10:54→17:27)
[2021-01-21] MEDS: CHLORHEXIDINE GLUCONATE MOUTHWASH PO SCH ×3 (11:03→21:40)
[2021-01-21] MEDS: GABAPENTIN 300 MG CAPSULE PEG SCH (21:00)
[2021-01-21] MEDS: SACCHAROMYCES BOULARDII 250 MG CAPSULE PO SCH (21:00)
[2021-01-21] MEDS: ROSUVASTATIN CALCIUM 20 MG TABLET PO SCH (21:02)
[2021-01-21] MEDS: INSULIN GLARGINE,HUM.REC.ANLOG 100 UNITS/ML VIAL SC SCH (21:20)
[2021-01-22] MEDS: MEROPENEM 1 GM in NORMAL SALINE 100 ML IV SCH ×3 (01:49→17:37)
[2021-01-22] MEDS: ALBUTEROL SULFATE 2.5 MG/3 ML VIAL.NEB IH SCH ×8 (01:55→22:02)
[2021-01-22] MEDS: guaiFENesin 100 MG/5 ML SYRUP PEG SCH ×6 (04:24→20:18)
[2021-01-22] MEDS: ACETYLCYSTEINE 200 MG/ML VIAL IH SCH ×3 (05:47→17:40)
[2021-01-22 06:47] LABS: Hematocrit 33.4 % (37.0-47.0); Hemoglobin 10.3 gm/dL (12.5-16.0); Mean Cell Volume 87.7 fl (78-100); Mean Corpuscular Hgb Conc 30.8 g/dl (32-36); Mean Platelet Volume 10.5 fl (8-12.5); Neutrophil # 6.7 K/mm3 (1.3-6.0); Neutrophil % 78.5 % (42-75.0); Platelet Count 254 K/mm3 (150-450); Red Blood Count 3.81 M/mm3 (4.2-5.4); Red Cell Distribution Width 18.4 % (11.5-14.0); White Blood Count 8.6 K/mm3 (4.0-10.5)
[2021-01-22 07:14] LABS: Anion Gap 13.1 mmol/L (6.8-13.8); BUN/Creatinine Ratio 21.1 (9.0-21.6); Calcium * 7.9 mg/dL (7.9-10.9); Carbon Dioxide 29.9 mmol/L (24-32.6); Estimated Creat Clear 70.4
[2021-01-22] MEDS: INSULIN LISPRO 100 UNITS/ML VIAL SC SCH ×3 (07:32→17:37)
[2021-01-22] MEDS: ASCORBIC ACID 500 MG TABLET PEG SCH (08:08)
[2021-01-22] MEDS: SACCHAROMYCES BOULARDII 250 MG CAPSULE PO SCH ×2 (08:08→20:20)
[2021-01-22] MEDS: CHOLECALCIFEROL 1,000 UNIT CAPSULE PEG SCH (08:08)
[2021-01-22] MEDS: FUROSEMIDE 20 MG, FUROSEMIDE 40 MG PEG SCH ×4 (08:08→20:20)
[2021-01-22] MEDS: APIXABAN 5 MG TABLET GT SCH ×2 (08:08→20:19)
[2021-01-22] MEDS: VENLAFAXINE HCL 75 MG TABLET PEG SCH ×2 (08:08→20:19)
[2021-01-22] MEDS: DOXAZOSIN MESYLATE 2 MG TABLET PEG SCH (08:09)
[2021-01-22] MEDS: ASPIRIN 81 MG TAB.CHEW PEG SCH (08:09)
[2021-01-22] MEDS: LEVOTHYROXINE SODIUM 150 MCG TABLET PEG SCH (08:09)
[2021-01-22] MEDS: prednisoLONE ACETATE 50 DROP BTL OP SCH ×4 (08:10→20:21)
[2021-01-22] MEDS: CHLORHEXIDINE GLUCONATE MOUTHWASH PO SCH (08:10)
[2021-01-22] MEDS: POTASSIUM CHLORIDE 20 MEQ/15 ML UDC PEG SCH (08:10)
[2021-01-22] MEDS: NYSTATIN 15 APPL BTL TP SCH ×4 (08:10→20:20)
[2021-01-22] MEDS: PANTOPRAZOLE SODIUM 40 MG in NORMAL SALINE 100 ML IV SCH (10:07)
--- NOTE | 2021-01-22 10:42 | PN ---
Subjective - Date and Time Seen Date: 01/22/21 Time: 09:15 Subjective Narrative: Patient is not interactive during exam. Objective - Review of Systems Generalized/Overall Review: Reports: No Symptoms Reported - unable to obtain - Vitals Vitals: Last Vital Signs Temp 36.9 C 01/22/21 06:56 Pulse 66 01/22/21 10:11 Resp 20 01/22/21 10:11 BP 116/66 01/22/21 08:08 Pulse Ox 99 01/22/21 10:01 - Abnormal Lab Findings Abnormal Lab Findings: Abnormal Lab Results 01/22/21 01/22/21 Range/Units 06:30 06:30 RBC 3.81 L (4.2-5.4) M/mm3 Hgb 10.3 L (12.5-16.0) gm/dL Hct 33.4 L (37.0-47.0) % MCHC 30.8 L (32-36) g/dl RDW 18.4 H (11.5-14.0) % Immature Gran % (Auto) 0.60 H (0.001-0.429) % Immature Gran # (Auto) 0.05 H (0.000-0.0310) K/mm3 Neutrophils % 78.5 H (42-75.0) % Lymphocytes % 7.7 L (20-51) % Eosinophils % 7.1 H (0.0-3.0) % Neutrophils # 6.7 H (1.3-6.0) K/mm3 Lymphocytes # 0.66 L (1.5-3.5) k/mm3 Sodium 145 H (132-142) mmol/L Plasma Sodium 145 H (130-142) mmol/L Potassium 3.0 L (3.4-4.6) mmol/L Random Glucose 131 H D (70-110) mg/dL - Exam Constitutional: Present: No distress, Morbidly obese Respiratory: Present: other - ventilated, sonorous expirations Cardiovascular/Chest: Present: regular rate, rhythm Abdomen: Present: soft, obese Extremity: Present: lower extremity edema - 1+ bilaterally. IV in right foot Cauti Physician Documentation - Urinary Catheter Management Urethral ([place]) Date of Insertion: 01/17/21 Assessment/Plan Plan Narrative: WBC normalized and neutrophils improving after the change to merrem yesterday. Her GFR also improved from 54 to 81. She has some new hypokalemia, so will add a potassium supplement that can be given with her tube feedings. Anticipate she will remain hospitalized at least 2 additional midnights. 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
[2021-01-22] MEDS: ALBUTEROL SULFATE 2.5 MG/3 ML VIAL.NEB IH PRN (12:23)
[2021-01-22] MEDS: ROSUVASTATIN CALCIUM 20 MG TABLET PO SCH (20:19)
[2021-01-22] MEDS: GABAPENTIN 300 MG CAPSULE PEG SCH (20:20)
[2021-01-22] MEDS: CHLORHEXIDINE GLUCONATE 15 ML UDC MM SCH (20:21)
[2021-01-22] MEDS: traMADol HCL 50 MG TABLET PEG PRN (20:38)
[2021-01-22] MEDS: INSULIN GLARGINE,HUM.REC.ANLOG 100 UNITS/ML VIAL SC SCH (20:44)
[2021-01-23] MEDS: guaiFENesin 100 MG/5 ML SYRUP PEG SCH ×6 (01:06→20:06)
[2021-01-23] MEDS: MEROPENEM 1 GM in NORMAL SALINE 100 ML IV SCH ×3 (01:27→18:37)
[2021-01-23] MEDS: ALBUTEROL SULFATE 2.5 MG/3 ML VIAL.NEB IH SCH ×6 (02:08→22:09)
[2021-01-23] MEDS: ACETYLCYSTEINE 200 MG/ML VIAL IH SCH ×2 (05:28→17:45)
[2021-01-23] MEDS: INSULIN LISPRO 100 UNITS/ML VIAL SC SCH ×3 (06:34→17:07)
[2021-01-23 06:43] LABS: Hematocrit 35.8 % (37.0-47.0); Hemoglobin 10.7 gm/dL (12.5-16.0); Mean Cell Volume 88.4 fl (78-100); Mean Corpuscular Hemoglobin 26.4 pg (27-31); Mean Corpuscular Hgb Conc 29.9 g/dl (32-36); Mean Platelet Volume 10.5 fl (8-12.5); Neutrophil # 6.2 K/mm3 (1.3-6.0); Neutrophil % 72.6 % (42-75.0); Platelet Count 269 K/mm3 (150-450); Red Blood Count 4.05 M/mm3 (4.2-5.4); Red Cell Distribution Width 18.7 % (11.5-14.0); White Blood Count 8.6 K/mm3 (4.0-10.5)
[2021-01-23 07:14] LABS: Albumin * 2.4 gm/dl (3.4-5.0); Anion Gap 8.7 mmol/L (6.8-13.8); BUN/Creatinine Ratio 25.4 (9.0-21.6); Bilirubin, Total 0.3 mg/dL (0.0-1.1); Ca. Corrected For Albumin 9.4 mg/dL (8.4-10.2); Calcium * 8.4 mg/dL (7.9-10.9); Carbon Dioxide 33.5 mmol/L (24-32.6); Potassium 3.2 mmol/L (3.4-4.6); Total Protein 7.2 gm/dL (6.2-8.2)
[2021-01-23] MEDS: NYSTATIN 15 APPL BTL TP SCH ×4 (08:22→20:06)
[2021-01-23] MEDS: POTASSIUM CHLORIDE 20 MEQ/15 ML UDC PEG SCH (08:22)
[2021-01-23] MEDS: prednisoLONE ACETATE 50 DROP BTL OP SCH ×4 (08:22→20:08)
[2021-01-23] MEDS: CHOLECALCIFEROL 1,000 UNIT CAPSULE PEG SCH (08:22)
[2021-01-23] MEDS: CHLORHEXIDINE GLUCONATE 15 ML UDC MM SCH ×2 (08:22→20:08)
[2021-01-23] MEDS: DOXAZOSIN MESYLATE 2 MG TABLET PEG SCH (08:22)
[2021-01-23] MEDS: LEVOTHYROXINE SODIUM 150 MCG TABLET PEG SCH (08:23)
[2021-01-23] MEDS: FUROSEMIDE 20 MG, FUROSEMIDE 40 MG PEG SCH ×4 (08:23→20:06)
[2021-01-23] MEDS: ASPIRIN 81 MG TAB.CHEW PEG SCH (08:24)
[2021-01-23] MEDS: PANTOPRAZOLE SODIUM 40 MG in NORMAL SALINE 100 ML IV SCH (08:24)
[2021-01-23] MEDS: APIXABAN 5 MG TABLET GT SCH ×2 (08:24→20:06)
[2021-01-23] MEDS: ASCORBIC ACID 500 MG TABLET PEG SCH (08:24)
[2021-01-23] MEDS: SACCHAROMYCES BOULARDII 250 MG CAPSULE PO SCH ×2 (08:24→20:08)
[2021-01-23] MEDS: VENLAFAXINE HCL 75 MG TABLET PEG SCH ×2 (08:24→20:08)
--- NOTE | 2021-01-23 10:02 | PN ---
Subjective - Date and Time Seen Date: 01/23/21 Time: 09:00 Subjective Narrative: No new concerns from nursing. Does not waken for my exam. Objective - Review of Systems Generalized/Overall Review: Reports: No Symptoms Reported - unable to obtain - Vitals Vitals: Last Vital Signs Temp 36.9 C 01/23/21 04:00 Pulse 67 01/23/21 06:00 Resp 18 01/23/21 06:00 BP 121/73 01/23/21 06:00 Pulse Ox 99 01/23/21 06:00 - Abnormal Lab Findings Abnormal Lab Findings: Abnormal Lab Results 01/23/21 01/23/21 Range/Units 06:40 06:40 RBC 4.05 L (4.2-5.4) M/mm3 Hgb 10.7 L (12.5-16.0) gm/dL Hct 35.8 L (37.0-47.0) % MCH 26.4 L (27-31) pg MCHC 29.9 L (32-36) g/dl RDW 18.7 H (11.5-14.0) % Immature Gran % (Auto) 0.50 H (0.001-0.429) % Immature Gran # (Auto) 0.04 H (0.000-0.0310) K/mm3 Lymphocytes % 14.2 L (20-51) % Eosinophils % 5.7 H (0.0-3.0) % Neutrophils # 6.2 H (1.3-6.0) K/mm3 Lymphocytes # 1.22 L (1.5-3.5) k/mm3 Sodium 144 H (132-142) mmol/L Plasma Sodium 145 H (130-142) mmol/L Potassium 3.2 L (3.4-4.6) mmol/L Carbon Dioxide 33.5 H (24-32.6) mmol/L BUN/Creatinine Ratio 25.4 H (9.0-21.6) Random Glucose 162 H (70-110) mg/dL Albumin 2.4 L (3.4-5.0) gm/dl - Exam Constitutional: Present: No distress, Morbidly obese Neck: Present: other - tracheostomy in place Respiratory: Present: other - ventilated Cardiovascular/Chest: Present: regular rate, rhythm Abdomen: Present: soft, obese Extremity: Present: other - IV in right foot. Absent: lower extremity edema Cauti Physician Documentation - Urinary Catheter Management Urethral ([place]) Date of Insertion: 01/17/21 Assessment/Plan Plan Narrative: Today is day #5 of hospitalization for HCAP/VAP. WBC normalized after changing abx to merrem, and will continue. Potassium was 3.0 yesterday, so her supplement was increased. Potassium was 3.2 today. GFR improved after the DC of vancomycin, and was 91 today. No other changes needed. 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
[2021-01-23] MEDS: ROSUVASTATIN CALCIUM 20 MG TABLET PO SCH (20:07)
[2021-01-23] MEDS: GABAPENTIN 300 MG CAPSULE PEG SCH (20:08)
[2021-01-23] MEDS: INSULIN GLARGINE,HUM.REC.ANLOG 100 UNITS/ML VIAL SC SCH (20:28)
[2021-01-24] MEDS: guaiFENesin 100 MG/5 ML SYRUP PEG SCH ×6 (00:25→20:29)
[2021-01-24] MEDS: ALBUTEROL SULFATE 2.5 MG/3 ML VIAL.NEB IH SCH ×7 (01:59→22:58)
[2021-01-24] MEDS: MEROPENEM 1 GM in NORMAL SALINE 100 ML IV SCH ×3 (02:29→17:56)
[2021-01-24] MEDS: ACETYLCYSTEINE 200 MG/ML VIAL IH SCH ×3 (05:23→18:07)
[2021-01-24 07:19] LABS: Hematocrit 36.6 % (37.0-47.0); Hemoglobin 10.8 gm/dL (12.5-16.0); Mean Cell Volume 90.1 fl (78-100); Mean Corpuscular Hemoglobin 26.6 pg (27-31); Mean Corpuscular Hgb Conc 29.5 g/dl (32-36); Mean Platelet Volume 10.9 fl (8-12.5); Neutrophil # 6.9 K/mm3 (1.3-6.0); Neutrophil % 71.3 % (42-75.0); Platelet Count 267 K/mm3 (150-450); Red Blood Count 4.06 M/mm3 (4.2-5.4); Red Cell Distribution Width 18.8 % (11.5-14.0); White Blood Count 9.7 K/mm3 (4.0-10.5)
[2021-01-24 07:49] LABS: Albumin * 2.5 gm/dl (3.4-5.0); BUN/Creatinine Ratio 30.6 (9.0-21.6); Bilirubin, Total 0.3 mg/dL (0.0-1.1); Ca. Corrected For Albumin 9.2 mg/dL (8.4-10.2); Calcium * 8.3 mg/dL (7.9-10.9); Total Protein 6.8 gm/dL (6.2-8.2)
[2021-01-24] MEDS: INSULIN LISPRO 100 UNITS/ML VIAL SC SCH ×3 (07:51→16:53)
[2021-01-24] MEDS: CHOLECALCIFEROL 1,000 UNIT CAPSULE PEG SCH (08:05)
[2021-01-24] MEDS: FUROSEMIDE 20 MG, FUROSEMIDE 40 MG PEG SCH ×4 (08:06→20:30)
[2021-01-24] MEDS: ASPIRIN 81 MG TAB.CHEW PEG SCH (08:06)
[2021-01-24] MEDS: DOXAZOSIN MESYLATE 2 MG TABLET PEG SCH (08:06)
[2021-01-24] MEDS: VENLAFAXINE HCL 75 MG TABLET PEG SCH ×2 (08:06→20:30)
[2021-01-24] MEDS: SACCHAROMYCES BOULARDII 250 MG CAPSULE PO SCH ×2 (08:08→20:31)
[2021-01-24] MEDS: LEVOTHYROXINE SODIUM 150 MCG TABLET PEG SCH (08:08)
[2021-01-24] MEDS: ASCORBIC ACID 500 MG TABLET PEG SCH (08:08)
[2021-01-24] MEDS: APIXABAN 5 MG TABLET GT SCH ×2 (08:08→20:30)
[2021-01-24] MEDS: NYSTATIN 15 APPL BTL TP SCH ×4 (08:09→20:29)
[2021-01-24] MEDS: POTASSIUM CHLORIDE 20 MEQ/15 ML UDC PEG SCH (08:10)
[2021-01-24] MEDS: prednisoLONE ACETATE 50 DROP BTL OP SCH ×4 (08:10→20:29)
--- NOTE | 2021-01-24 08:18 | PN ---
Subjective - Date and Time Seen Date: 01/24/21 Time: 08:15 Subjective Narrative: Awake alert oriented x2. Nodded her forehead to say yes that she is much better. She said she had pain but I am not able to today determine exact location as she kept on nodding yes to wherever I point.. Objective - Review of Systems Misc: All systems neg except as marked - ROS is limited due to patient cannot communicatereliably. Positve pain - chest/abdominal? - Vitals Vitals: Last Vital Signs Temp 36.9 C 01/24/21 02:29 Pulse 76 01/24/21 05:33 Resp 21 H 01/24/21 05:33 BP 120/72 01/24/21 02:29 Pulse Ox 96 01/24/21 05:23 - Abnormal Lab Findings Abnormal Lab Findings: Abnormal Lab Results 01/24/21 01/24/21 Range/Units 07:14 07:14 RBC 4.06 L (4.2-5.4) M/mm3 Hgb 10.8 L (12.5-16.0) gm/dL Hct 36.6 L (37.0-47.0) % MCH 26.6 L (27-31) pg MCHC 29.5 L (32-36) g/dl RDW 18.8 H (11.5-14.0) % Immature Gran # (Auto) 0.04 H (0.000-0.0310) K/mm3 Lymphocytes % 16.7 L (20-51) % Eosinophils % 4.7 H (0.0-3.0) % Neutrophils # 6.9 H (1.3-6.0) K/mm3 Sodium 148 H (132-142) mmol/L Plasma Sodium 149 H (130-142) mmol/L Carbon Dioxide 36.0 H (24-32.6) mmol/L BUN/Creatinine Ratio 30.6 H (9.0-21.6) Random Glucose 193 H (70-110) mg/dL Albumin 2.5 L (3.4-5.0) gm/dl - Exam Constitutional: Present: Alert - Alert awake oriented x2, Morbidly obese ENT Exam: Present: hearing grossly normal Neck: Present: limited range of motion. Absent: lymphadenopathy (R), lymphadenopathy (L) Respiratory: Present: decreased breath sounds, rhonchi, No wheezing Cardiovascular/Chest: Present: regular rate, rhythm, no JVD, no murmur Abdomen: Present: Normal bowel sounds, soft, nontender, obese Extremity: Present: no calf tenderness, pedal edema Cauti Physician Documentation - Urinary Catheter Management Urethral ([place]) Date of Insertion: 01/17/21 Assessment/Plan Plan Narrative: Cindy is hospital day #6 and day #6 of IV antibiotics initially 2 days of cefepime and now on fourth day of meropenem. I have no choice for oral antibiotics to transition her to. She will need a total of 7 days of antibiotic coverage for Pseudomonas pneumonia and she may be discharged after tomorrow's antibiotic treatment. Her Proteus mirabilis UTI should be resolved at this time. - Problems/Diagnosis (1) Pneumonia Problem: Acute Qualifiers: Pneumonia type: due to Pseudomonas Laterality: left Lung location: lower lobe of lung Qualified Code(s): J15.1 - Pneumonia due to Pseudomonas (2) UTI (urinary tract infection) Problem: Acute Narrative: Proteus Mirabilis (3) Chronic respiratory failure Problem: Chronic (4) Chronic obstructive pulmonary disease, unspecified Problem: Chronic Qualifiers: COPD type: COPD with acute exacerbation Qualified Code(s): J44.1 - Chronic obstructive pulmonary disease with (acute) exacerbation (5) Hypothyroidism, unspecified Problem: Chronic (6) Obstructive sleep apnea Problem: Chronic (7) Sarcoidosis of skin Problem: Chronic (8) On enteral nutrition Problem: Chronic
[2021-01-24] MEDS: PANTOPRAZOLE SODIUM 40 MG in NORMAL SALINE 100 ML IV SCH (08:31)
[2021-01-24] MEDS: CHLORHEXIDINE GLUCONATE 15 ML UDC MM SCH ×2 (16:52→20:31)
[2021-01-24] MEDS: GABAPENTIN 300 MG CAPSULE PEG SCH (20:31)
[2021-01-24] MEDS: INSULIN GLARGINE,HUM.REC.ANLOG 100 UNITS/ML VIAL SC SCH (20:32)
[2021-01-24] MEDS: ROSUVASTATIN CALCIUM 20 MG TABLET PO SCH (20:32)
[2021-01-25] MEDS: ALBUTEROL SULFATE 2.5 MG/3 ML VIAL.NEB IH SCH ×6 (02:34→22:02)
[2021-01-25] MEDS: MEROPENEM 1 GM in NORMAL SALINE 100 ML IV SCH ×3 (02:35→17:04)
[2021-01-25] MEDS: guaiFENesin 100 MG/5 ML SYRUP PEG SCH ×6 (02:35→20:08)
[2021-01-25] MEDS: ACETYLCYSTEINE 200 MG/ML VIAL IH SCH ×2 (06:04→18:00)
[2021-01-25] MEDS: INSULIN LISPRO 100 UNITS/ML VIAL SC SCH ×3 (07:16→16:08)
--- NOTE | 2021-01-25 08:10 | PN ---
Subjective - Date and Time Seen Date: 01/25/21 Time: 08:06 Subjective Narrative: JONATHON x2. opened her eyes but does not want to answer my other questions with yes or no. Objective - Review of Systems Misc: All systems neg except as marked - unobtainable - Vitals Vitals: Last Vital Signs Temp 37.1 C 01/25/21 06:29 Pulse 85 01/25/21 06:29 Resp 20 01/25/21 06:29 BP 119/69 01/25/21 06:29 Pulse Ox 96 01/25/21 07:55 - Exam Constitutional: Present: Alert - AAO x 2 ENT Exam: Present: hearing grossly normal Neck: Present: limited range of motion. Absent: lymphadenopathy (R) Respiratory: Present: rhonchi, wheezing - occasional. Absent: decreased breath sounds Cardiovascular/Chest: Present: regular rate, rhythm, no JVD, no murmur Abdomen: Present: Normal bowel sounds, soft, nontender, obese Extremity: Present: no pedal edema, no calf tenderness Cauti Physician Documentation - Urinary Catheter Management Urethral ([place]) Date of Insertion: 01/17/21 Assessment/Plan Plan Narrative: Cindy is hospital day 7 for healthcare associated pneumonia/ventilator associated pneumonia with Pseudomonas. She also has Proteus mirabilis urinary tract infection. She is on her last day of IV antibiotics and can be discharged tomorrow.. - Problems/Diagnosis (1) Pneumonia Problem: Acute Qualifiers: Pneumonia type: due to Pseudomonas Laterality: left Lung location: lower lobe of lung Qualified Code(s): J15.1 - Pneumonia due to Pseudomonas (2) UTI (urinary tract infection) Problem: Acute (3) Chronic respiratory failure Problem: Chronic (4) Chronic obstructive pulmonary disease, unspecified Problem: Chronic Qualifiers: COPD type: COPD with acute exacerbation Qualified Code(s): J44.1 - Chronic obstructive pulmonary disease with (acute) exacerbation (5) Hypothyroidism, unspecified Problem: Chronic (6) Obstructive sleep apnea Problem: Chronic (7) Sarcoidosis of skin Problem: Chronic (8) On enteral nutrition Problem: Chronic
[2021-01-25] MEDS: PANTOPRAZOLE SODIUM 40 MG in NORMAL SALINE 100 ML IV SCH (08:38)
[2021-01-25] MEDS: POTASSIUM CHLORIDE 20 MEQ/15 ML UDC PEG SCH (08:42)
[2021-01-25] MEDS: CHOLECALCIFEROL 1,000 UNIT CAPSULE PEG SCH (08:42)
[2021-01-25] MEDS: ACETAMINOPHEN 325 MG TABLET PEG PRN (08:42)
[2021-01-25] MEDS: CHLORHEXIDINE GLUCONATE 15 ML UDC MM SCH ×2 (08:42→20:16)
[2021-01-25] MEDS: LEVOTHYROXINE SODIUM 150 MCG TABLET PEG SCH (08:43)
[2021-01-25] MEDS: NYSTATIN 15 APPL BTL TP SCH ×4 (08:43→20:13)
[2021-01-25] MEDS: VENLAFAXINE HCL 75 MG TABLET PEG SCH ×2 (08:43→20:10)
[2021-01-25] MEDS: SACCHAROMYCES BOULARDII 250 MG CAPSULE PO SCH ×2 (08:43→20:11)
[2021-01-25] MEDS: FUROSEMIDE 20 MG, FUROSEMIDE 40 MG PEG SCH ×4 (08:43→20:12)
[2021-01-25] MEDS: ASCORBIC ACID 500 MG TABLET PEG SCH (08:43)
[2021-01-25] MEDS: DOXAZOSIN MESYLATE 2 MG TABLET PEG SCH (08:43)
[2021-01-25] MEDS: ASPIRIN 81 MG TAB.CHEW PEG SCH (08:43)
[2021-01-25] MEDS: APIXABAN 5 MG TABLET GT SCH ×2 (08:43→20:11)
[2021-01-25] MEDS: prednisoLONE ACETATE 50 DROP BTL OP SCH ×4 (08:44→20:16)
[2021-01-25] MEDS: ROSUVASTATIN CALCIUM 20 MG TABLET PO SCH (20:09)
[2021-01-25] MEDS: GABAPENTIN 300 MG CAPSULE PEG SCH (20:14)
[2021-01-25] MEDS: INSULIN GLARGINE,HUM.REC.ANLOG 100 UNITS/ML VIAL SC SCH (20:33)
[2021-01-26] MEDS: guaiFENesin 100 MG/5 ML SYRUP PEG SCH ×7 (00:13→23:05)
[2021-01-26] MEDS: MEROPENEM 1 GM in NORMAL SALINE 100 ML IV SCH (01:49)
[2021-01-26] MEDS: ALBUTEROL SULFATE 2.5 MG/3 ML VIAL.NEB IH SCH ×6 (02:10→21:59)
[2021-01-26] MEDS: ACETYLCYSTEINE 200 MG/ML VIAL IH SCH ×2 (05:40→17:50)
[2021-01-26] MEDS: INSULIN LISPRO 100 UNITS/ML VIAL SC SCH ×3 (06:38→16:30)
--- NOTE | 2021-01-26 08:16 | PN ---
Subjective - Date and Time Seen Date: 01/26/21 Time: 08:11 Subjective Narrative: AAO x2. Patient says she has no complaints. Objective - Review of Systems Generalized/Overall Review: Denies: Chills, Fever Respiratory: Denies: Cough, Shortness of Breath Cardiac: Denies: Chest Pain, Edema, Palpitations Abdominal: Denies: Nausea, Vomiting, Abdominal Pain Genitourinary Symptoms: Denies: Urgency, Frequency Musculoskeletal Complaints: Denies: Joint Pain Neurological: Denies: Headache Misc: All systems neg except as marked - Vitals Vitals: Last Vital Signs Temp 37.3 C 01/26/21 06:38 Pulse 64 01/26/21 06:38 Resp 17 01/26/21 06:38 BP 110/66 01/26/21 06:38 Pulse Ox 98 01/26/21 06:38 - Exam Constitutional: Present: Alert - AAo x 2, Cooperative, Morbidly obese ENT Exam: Present: hearing grossly normal Neck: Present: limited range of motion. Absent: lymphadenopathy (R), lymphadenopathy (L) - due to trach and tubes Respiratory: Present: decreased breath sounds, No rales, No wheezing Cardiovascular/Chest: Present: regular rate, rhythm, no JVD, no murmur Abdomen: Present: Normal bowel sounds, soft, nontender, obese Extremity: Present: no calf tenderness, pedal edema Cauti Physician Documentation - Urinary Catheter Management Urethral ([place]) Date of Insertion: 01/17/21 Assessment/Plan Plan Narrative: Cindy is hospital day 8 for healthcare associated pneumonia/ventilator associated pneumonia with Pseudomonas and Proteus mirabilis UTI. She has finished a total of 7 days of IV antibiotics and will discontinue her IV antibiotics. Today is the first day I saw Cindy to be very awake alert oriented and very responsive to questions. She responded with her lips forming no to any pain, shortness of breath, burning sensation when she urinates etc. She is stable to be discharged whenever placement for her is found. Her sodium has bee n running high and we will have enrollment management vice president/dietitian adjust this with her feeding and she may need increase in her flushes or may be this is due to the NSS which she gets from her antibiotics which will anyway be stopped today. - Problems/Diagnosis (1) Pneumonia Problem: Acute Qualifiers: Pneumonia type: due to Pseudomonas Laterality: left Lung location: lower lobe of lung Qualified Code(s): J15.1 - Pneumonia due to Pseudomonas (2) UTI (urinary tract infection) Problem: Acute (3) Chronic respiratory failure Problem: Chronic (4) Chronic obstructive pulmonary disease, unspecified Problem: Chronic Qualifiers: COPD type: COPD with acute exacerbation Qualified Code(s): J44.1 - Chronic obstructive pulmonary disease with (acute) exacerbation (5) Hypothyroidism, unspecified Problem: Chronic (6) Obstructive sleep apnea Problem: Chronic (7) Sarcoidosis of skin Problem: Chronic (8) On enteral nutrition Problem: Chronic
[2021-01-26] MEDS: PANTOPRAZOLE SODIUM 40 MG in NORMAL SALINE 100 ML IV SCH (08:28)
[2021-01-26] MEDS: NYSTATIN 15 APPL BTL TP SCH ×4 (08:29→20:17)
[2021-01-26] MEDS: ASPIRIN 81 MG TAB.CHEW PEG SCH (08:30)
[2021-01-26] MEDS: FUROSEMIDE 20 MG, FUROSEMIDE 40 MG PEG SCH ×4 (08:30→20:23)
[2021-01-26] MEDS: LEVOTHYROXINE SODIUM 150 MCG TABLET PEG SCH (08:30)
[2021-01-26] MEDS: CHOLECALCIFEROL 1,000 UNIT CAPSULE PEG SCH (08:30)
[2021-01-26] MEDS: prednisoLONE ACETATE 50 DROP BTL OP SCH ×4 (08:30→20:17)
[2021-01-26] MEDS: APIXABAN 5 MG TABLET GT SCH ×2 (08:30→20:22)
[2021-01-26] MEDS: DOXAZOSIN MESYLATE 2 MG TABLET PEG SCH (08:31)
[2021-01-26] MEDS: VENLAFAXINE HCL 75 MG TABLET PEG SCH ×2 (08:31→20:22)
[2021-01-26] MEDS: CHLORHEXIDINE GLUCONATE 15 ML UDC MM SCH ×2 (08:31→20:24)
[2021-01-26] MEDS: SACCHAROMYCES BOULARDII 250 MG CAPSULE PO SCH ×2 (08:31→20:22)
[2021-01-26] MEDS: POTASSIUM CHLORIDE 20 MEQ/15 ML UDC PEG SCH (08:31)
[2021-01-26] MEDS: ASCORBIC ACID 500 MG TABLET PEG SCH (08:31)
[2021-01-26 11:20] LABS: Anion Gap 12.6 mmol/L (6.8-13.8); BUN/Creatinine Ratio 35.9 (9.0-21.6); Calcium * 8.7 mg/dL (7.9-10.9); Carbon Dioxide 33.7 mmol/L (24-32.6); Estimated Creat Clear 83.6; Potassium 4.3 mmol/L (3.4-4.6)
[2021-01-26] MEDS: ROSUVASTATIN CALCIUM 20 MG TABLET PO SCH (20:21)
[2021-01-26] MEDS: GABAPENTIN 300 MG CAPSULE PEG SCH (20:23)
[2021-01-26] MEDS: INSULIN GLARGINE,HUM.REC.ANLOG 100 UNITS/ML VIAL SC SCH (20:24)
[2021-01-26 23:05] VITALS: BP 102/69
== END 2021-01-26 23:59 | disposition still patient (30) | DRG 207 ==
LOC: ER 20:01 → MS 22:14
PROVIDERS: ADMIT Internal Medicine; ATTEND Internal Medicine
DX: E03.9 Hypothyroidism, unspecified; E11.9 Type 2 diabetes mellitus without complications; J15.1 Pneumonia due to Pseudomonas; Z99.11 Dependence on respirator [ventilator] status; B96.4 Proteus (mirabilis) (morganii) as the cause of diseases classified elsewhere; J96.91 Respiratory failure, unspecified with hypoxia; Z93.0 Tracheostomy status; Z93.1 Gastrostomy status; T83.511A Infection and inflammatory reaction due to indwelling urethral catheter, initial encounter; Z79.01 Long term (current) use of anticoagulants; N39.0 Urinary tract infection, site not specified; G47.33 Obstructive sleep apnea (adult) (pediatric); D86.3 Sarcoidosis of skin; J44.1 Chronic obstructive pulmonary disease with (acute) exacerbation; I48.0 Paroxysmal atrial fibrillation; D52.9 Folate deficiency anemia, unspecified; R53.1 Weakness